=== PATIENT | male | born 1970 ===

== ENCOUNTER 2017-10-12 02:44 | Outpatient (CLI) | payer BC | END 2017-10-12 23:59 | disposition home or self-care (01) | LOC: DIABETIC 02:44 | PROVIDERS: ATTEND Specialist | DX: E10.65 Type 1 diabetes mellitus with hyperglycemia (principal) | CPT/HCPCS: G0108 ==

== ENCOUNTER 2017-11-29 04:24 | Outpatient (CLI) | payer BC | END 2017-11-29 23:59 | disposition home or self-care (01) | LOC: DIABETIC 04:24 | PROVIDERS: ATTEND Specialist | DX: E11.9 Type 2 diabetes mellitus without complications (principal) | CPT/HCPCS: G0108 ==

== ENCOUNTER 2018-02-14 02:13 | Outpatient (CLI) | payer BC | END 2018-02-14 23:59 | disposition home or self-care (01) | LOC: DIABETIC 02:13 | PROVIDERS: ATTEND Specialist | DX: E11.9 Type 2 diabetes mellitus without complications (principal) ==